=== PATIENT | male | born 1940 ===

== ENCOUNTER 2019-03-21 07:06 | Day surgery (SDC) | payer MEDICARE ==
[2019-03-21 07:41] VITALS: BMI 31.6
[2019-03-21] MEDS ORDERED: Bupivacaine HCl 0.25% PF (10 ml) Inj ONE (09:14)
[2019-03-21] MEDS ORDERED: ceFAZolin 1 gm in NS 1 GM/100 ML BAG IVPB ONE (09:14)
[2019-03-21] MEDS ORDERED: Lidocaine Hydrochloride 20 ML INJ ONE (09:14)
[2019-03-21] MEDS ORDERED: Propofol 10 mg/ml Inj (20 ML) ONE (09:18)
[2019-03-21] MEDS ORDERED: Midazolam 2 MG/2 ML VIAL ONE (09:18)
--- NOTE | 2019-03-21 10:23 | PCM.SURG1 ---
Surgeon's Initial Post Op Note - Surgeon's Notes Surgeon: Dr. Lino Impregnator And Drier: CHARLA No Pre-Operative Diagnosis: right carpal tunnel syndrome Operative Findings: same Post-Operative Diagnosis: same Operation Performed: endoscopic carpal tunnel release Specimen/Specimens Removed: none Estimated Blood Loss: EBL {In ML}: 0 Date of Surgery/Procedure: 03/21/19 Time of Surgery/Procedure: 09:45
[2019-03-21] MEDS: HYDROmorphone 0.5 mg/0.5 ml ISec IVP PRN ×2 (10:30→10:42)
[2019-03-21 11:32] VITALS: RESP 18; TEMP 97.8
[2019-03-21 12:08] VITALS: BP 137/71; PULSE 62; O2SAT 97
--- NOTE | 2019-03-21 16:05 | OP ---
PROCEDURE DATE: 03/21/2019 PREOPERATIVE DIAGNOSIS: carpal tunnel syndrome. POSTOPERATIVE DIAGNOSIS: carpal tunnel syndrome. PROCEDURE: Endoscopic carpal tunnel release surgery - [id number]. SURGEON: Oscar Lino MD HOLE FILLER: CHARLA Stapleton. ANESTHESIA: local and IV sedation ESTIMATED BLOOD LOSS: 0 mL. DISPOSITION: Stable to recovery room. OPERATIVE FINDINGS: Severe compression of the median nerve within the carpal tunnel. INDICATION: Severe carpal tunnel syndrome which has failed conservative therapy. Patient is indicated for the above procedure. Risks and benefits were explained. Risks include but not limited to bleeding, infection, tendon, nerve, vessel injury, instability, chronic pain, potential need for additional surgery in the future, numbness. Patient understood the above risks and elected to proceed. Informed consent was obtained. PROCEDURE: Patient was brought to the operating room and placed supine on the operating room table. After adequate anesthesia was given and prophylactic antibiotics, a well-padded non-sterile tourniquet was placed on the patient's upper extremity. The entire extremity was then prepped and draped in standard surgical fashion. A time-out was performed. With a sterile marking pen a 2-cm transverse incision was outlined over the distal wrist flexion centered over the third web space. The arm was then elevated and exsanguinated with an Esmarch bandage. The tourniquet was inflated to 250 mmHg and Esmarch was removed. Skin incision was made and superficial veins were cauterized. Blunt dissection was carried down. Palmaris longus tendon was identified and retracted. The deep fascia was then identified and incised opening the entrance to the carpal canal. The median nerve was identified and protected throughout the whole procedure. Sequential dilators were placed into the carpal canal followed by an arthroscopic scalpel. The transverse carpal ligament was identified in its entirety. Under direct arthroscopic visualization the hook blade was deployed at the distal edge of the transverse carpal ligament incising it in is entirety to the proximal edge of the ligament. The transverse carpal ligament was fully incised and the carpal canal decompressed. The arthroscopic instrument was then removed. Next the proximal fascia over the median nerve was identified, and incised with tenotomy scissors to further decompress the median nerve. All sites of compression of the median nerve at the wrist were released. The wound was then copiously irrigated. Tourniquet was deflated. Hemostasis was obtained with bipolar cautery. Followed by skin closure with 4-0 Monocryl subcuticular closure. Sterile dressing was applied, consisting of Steri-Strips, 4x4's, and Maryjo. Patient tolerated the procedure well and returned to recovery room awake alert and in excellent condition. Oscar Lino MD
== END 2019-03-21 12:14 | disposition home or self-care (01) ==
LOC: C.SDS 07:06
PROVIDERS: ATTEND Orthopaedic Surgery
DX: G56.01 Carpal tunnel syndrome, right upper limb (principal)
CPT/HCPCS: 29848; J1170; J2250; J2704; J3010